=== PATIENT | female | born 1980 | race Caucasian/White ===

== ENCOUNTER 2022-01-11 09:21 | Emergency (ER) | payer OTHER ==
[2022-01-11 09:35] VITALS: BP 130/90; PULSE 68; TEMP 98.1; BMI 35.2
== END 2022-01-11 11:12 | disposition home or self-care (01) ==
LOC: JERFT 09:21
PROC: 3E023GC Introduction of Other Therapeutic Substance into Muscle, Percutaneous Approach (ICD-10-PCS; principal; 2022-01-11)
DX: N76.0 Acute vaginitis (principal); Z20.2 Contact with and (suspected) exposure to infections with a predominantly sexual mode of transmission
CPT/HCPCS: 36415; 87491; 87591; 99284-25